=== PATIENT | female | born 1950 | race Caucasian/White ===

== ENCOUNTER → 2023-04-22 | Outpatient (CLI) | payer MEDICARE ==
--- NOTE | 2023-04-22 18:29 | P.SLEEP ---
History of Present Illness DATE: 04/22/2023 CONSULTATION/NEW PATIENT EVALUATION HISTORY OF PRESENT ILLNESS/SLEEP-WAKE EVALUATION: 73-year-old lady had been evaluated in the sleep center for significant movements during sleep. SLEEP SCHEDULE: Usually sleep schedule from 1112 until 6 AM. FALLING ASLEEP: Usually no significant problems with falling asleep. DURING SLEEP: Positive history of snoring. Positive history of possible out of dream movements. No history of hypnogogical hallucinations, sleep paralysis, or cataplexy. DURING THE DAY/WAKE STATE: Patient denies any significant excessive daytime sleepiness. [place] sleepiness scale is 4. Patient may take nap at 5 PM. PAST MEDICAL HISTORY: Parkinson's disease, hypothyroidism, acid reflux. PAST SURGICAL HISTORY: Partial hysterectomy, bilateral cataract surgery. MEDICATIONS: Levothyroxine 75 g once a day, carbidopa/levodopa 25-100 mg 3 times a day, clonazepam 0.5 mg at bedtime, omeprazole 20 mg once a day. SOCIAL HISTORY: Negative for smoking, alcohol consumption daily. FAMILY HISTORY: Mostly negative. REVIEW OF SYSTEMS: Snoring, possibly out of dream movements. No fevers. No double vision. No recent chest pain. No shortness of breath. No abdominal pain. No bleeding episodes. No blood in urine. No seizure episodes. PHYSICAL EXAMINATION: GENERAL: A pleasant patient without any distress. VITAL SIGNS: BP 179/92 , HR 77 , RR 12 , weight 148.2 pounds, height 5 foot 2.5 inches, body mass index 26.6 . HEENT: PERRLA, EOMI. Evaluation of oropharynx showed tongue protrudes midline, low position of soft palate Mallampati 3. NECK: Supple. No JVD. Thyroid is not palpable. [] inches in circumference. LUNGS: Clear to percussion and to auscultation. Good air exchange. No wheezing or rhonchi. HEART: S1, S2 regular. No murmurs, gallops or rubs. ABDOMEN: Soft and nontender. Bowel sounds are present. No organomegaly appreciated. EXTREMITIES: No clubbing or cyanosis. 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 Cranial nerves 2 to 7 intact. There is no fasciculation or atrophy noted. No focal deficits observed. ASSESSMENT: 1. Out of dream movements during the sleep, possibly REM sleep behavior disorder. 2. Differential diagnosis include periodic limb movements. 3. Positive history of snoring on the back position, low position of soft palate Mallampati 3, retrognathia 2 mm. Possibly obstructive sleep apnea hypopnea syndrome. 4. Hypothyroidism. 5 Parkinson's disease. 6 . Acid reflux. 7. Status post partial hysterectomy. 8. Status post bilateral cataract surgery. PLAN: 1. Polysomnography for evaluation of patient's breathing during sleep and to check for possible REM sleep behavior disorder and periodic limb movements. 2. Following plan after reading sleep study. 3. Preferable position during sleep on the side. 4. No driving if patient feels any sleepiness. Patient is aware of civil and criminal liability for unsafe driving. 5. Sleep hygiene with regular sleep time for at least 7.5-8 hours. 6. Watching weight. Thank you very much for referring this patient for consultation. Sincerely, Linden Moreland MD, PhD, FAASM. Diplomat of [place] [employer], Sleep Medicine Board by [place] [employer] [place] [employer] [facility] [place] Sleep Note - Sleep Note Sleep Note: Temperature: Pulse Rate: Respiratory Rate: Blood Pressure: SpO2: Height: Weight: BMI: Neck Circumference:
== END ==
LOC: 3 N SLEEP 14:16
PROVIDERS: ATTEND Internal Medicine
DX: R06.83 Snoring (principal); E03.9 Hypothyroidism, unspecified; K21.9 Gastro-esophageal reflux disease without esophagitis; M26.19 Other specified anomalies of jaw-cranial base relationship; G20.A1 Parkinson's disease without dyskinesia, without mention of fluctuations; Z90.711 Acquired absence of uterus with remaining cervical stump; Z98.41 Cataract extraction status, right eye; Z98.42 Cataract extraction status, left eye; Z79.890 Hormone replacement therapy
CPT/HCPCS: 99202

== ENCOUNTER → 2024-06-24 | Outpatient (CLI) | payer MEDICARE ==
[2024-06-24 15:46] LABS: % Iron Saturation 30.1 (12.00-45.00); Ferritin 27.6 ng/mL (10.0-291.0)
== END | disposition home or self-care (01) ==
LOC: LABWHC1 08:53
PROVIDERS: ATTEND Psychiatry & Neurology Neurology
DX: G25.81 Restless legs syndrome (principal)
CPT/HCPCS: 36415; 82728; 83540; 83550; 84466